=== PATIENT | female | born 1970 | race Caucasian/White ===

== ENCOUNTER 2023-10-18 09:13 | Outpatient (OUT) | payer OTHER, SELFPAY ==
[2023-10-18 09:29] LABS: Basophils Absolute Auto 0.1 10^3/uL (0.0-0.1); Basophils Percent Auto 1.8 % (0.2-2.0); Eosinophils Absolute Auto 0.2 10^3/uL (0.0-0.7); Eosinophils Percent Auto 4.1 % (0.9-7.0); Hematocrit 42.9 % (36.0-48.0); Immature Granulocytes Abs Auto 0.01 10^3/uL (0.00-0.03); Immature Granulocytes Pct Auto 0.2 % (0.0-0.5); Lymphocytes Absolute Auto 1.8 10^3/uL (1.2-3.8); Lymphocytes Percent Auto 35.8 % (20.5-60.0); Mean Corpuscular HGB Conc 32.6 g/dL (29.9-35.2); Mean Corpuscular Hemoglobin 29.4 pg (26.7-34.0); Mean Corpuscular Volume 89.9 fL (81.0-99.0); Mean Platelet Volume 9.3 fL (9.5-13.5); Monocytes Absolute Auto 0.4 10^3/uL (0.3-0.8); Monocytes Percent Auto 7.3 % (1.7-12.0); Neutrophils Absolute Auto 2.6 10^3/uL (1.4-6.5); Neutrophils Percent Auto 50.8 % (43.0-75.0); Platelet Count 283 10^3/uL (150-450); Red Blood Count 4.77 10^6/uL (4.20-5.40); Red Cell Distribution Width 12.4 % (11.0-15.0); White Blood Count 5.1 10^3/uL (4.0-11.0)
[2023-10-18 09:52] LABS: Alanine Aminotransferase 21 U/L (14-59); Albumin Globulin Ratio 1.1; Albumin Level 3.8 g/dL (3.4-5.0); Alkaline Phosphatase 93 U/L (46-116); Anion Gap 11.2; Aspartate Amino Transferase 12 U/L (15-37); Bilirubin Total 0.6 mg/dL (0.2-1.0); Calcium 8.9 mg/dL (8.5-10.1); Carbon Dioxide 31.8 mmol/L (21.0-32.0); Chloride 104 mmol/L (98-107); Chol HDL Ratio 3.3; Cholesterol 190 mg/dL (<=200); Estimated GFR (African America >60 (>=60); Estimated GFR (Non-African Ame >60 (>=60); Globulin 3.6 g/dL; Glucose 103 mg/dL (74-106); HDL Cholesterol 58 mg/dL (40-60); LDL Cholesterol Calculated 112.8 mg/dL; Sodium 143 mmol/L (136-145); Total Protein 7.4 g/dL (6.4-8.2); Triglycerides 96 mg/dL (<=150); VLDL CHOLESTEROL 19.2 mg/dL
== END 2023-10-18 09:14 | disposition home or self-care (01) ==
PROVIDERS: PCP Internal Medicine; Visit Provider Internal Medicine
DX: Z00.00 Encounter for general adult medical examination without abnormal findings (principal)
CPT/HCPCS: 36415; 80053; 80061; 85025

== ENCOUNTER 2023-10-29 09:36 | Emergency (ER) | payer OTHER, SELFPAY ==
[2023-10-29 09:40] VITALS: BP 153/79; PULSE 50; RESP 16; TEMP 36.4; O2SAT 100; BMI 25.8
[2023-10-29 09:46] VITALS: PULSE 50
--- NOTE | 2023-10-29 09:52 | XR_ITS ---
The [address] [address] Patient Name: RENETTA VALDES MRN: [id number] date: 1970 Sex: F Assigned Patient Location: ER Current Patient Location: ER Accession/Order Number: [id number] Exam Date: 10/29/2023 10:10 Report Date: 10/29/2023 10:28 At the request of: DEBBIE AVALOS Procedure: XR chest 1V EXAMINATION: XR chest 1V HISTORY: palpitations , tachycardia COMPARISON: No relevant comparison available. FINDINGS: LUNGS: No significant pulmonary parenchymal abnormalities. VASCULATURE: No increased pulmonary vasculature. PLEURA: No pneumothorax, effusion, or pleural thickening. CARDIAC: No cardiomegaly or cardiac silhouette abnormality. MEDIASTINUM: No visible mass or adenopathy. BONES: No fracture or visible bone lesion. OTHER: Negative. XR/XR chest 1V IMPRESSION: 1. No acute cardiopulmonary process. Electronically authenticated by: ELAINE WILKES Date: 10/29/2023 10:28
--- NOTE | 2023-10-29 09:52 | ECG_ITS ---
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
--- NOTE | 2023-10-29 10:03 | ED.ARRPALP1 ---
HPI - Arrhythmia/Palpitations General Chief Complaint: Arrhythmia/Palpitations Stated Complaint: FAST HEART RATE Time Seen by Provider: 10/29/23 09:48 Source: patient Mode of arrival: walk-in Limitations: no limitations History of Present Illness HPI narrative: 53-year-old female presents to the emergency department for palpitations. From time to time she feels like her heart is skipping a beat, it lasts momentarily. She's been having this intermittently for three days. She states she is always under stress, nothing out of the ordinary, and has been taking all of her medications. No new medications. no fever cough or shortness of breath. Related Data Home Medications Medication Instructions Recorded Confirmed metoprolol tartrate 25 mg tablet 25 mg PO 10/29/23 Allergies Allergy/AdvReac Type Severity Reaction Status Date / Time No Known Drug Allergies Allergy Verified 10/29/23 09:43 Review of Systems ROS Narrative A ten point review of systems is negative except as noted above. PFSH PFSH Social History Smoking status: Light tobacco smoker Exam Narrative Exam Narrative: Nurses note and vital signs reviewed and patient is not hypoxic. General: The patient appears well and in no apparent distress. Patient is resting comfortably on cart. Skin: Warm, dry, no pallor noted. There is no rash noted. Head: Normocephalic, atraumatic Eye: Normal conjunctiva, no drainage Ears, Nose, Mouth, and Throat: oral mucosa is moist. Nares patent. Cardiovascular: Regular Rate and Rhythm Respiratory: Patient is in no distress, no accessory muscle use, lungs are clear to auscultation, no wheezing, rales or rhonchi Back: non-tender GI: soft and nontender Musculoskeletal: The patient has no evidence of calf tenderness, no pitting edema, symmetrical pulses noted bilaterally Neurological: A&O, normal speech Psychiatric: Cooperative Constitutional Vital Signs, click to edit/add: Last Vital Signs Temp 97.6 F 10/29/23 09:40 Pulse 57 L 10/29/23 10:39 Resp 18 10/29/23 10:39 BP 134/81 10/29/23 10:39 Pulse Ox 97 10/29/23 10:39 O2 Del Method Room Air 10/29/23 09:40 Course Vital Signs Vital signs: Vital Signs Temperature 97.6 F 10/29/23 09:40 Pulse Rate 50 L 10/29/23 09:40 Respiratory Rate 16 10/29/23 09:40 Blood Pressure 153/79 H 10/29/23 09:40 Pulse Oximetry 100 10/29/23 09:40 Oxygen Delivery Method Room Air 10/29/23 09:40 Temperature 97.6 F 10/29/23 09:40 Pulse Rate 57 L 10/29/23 10:39 Respiratory Rate 18 10/29/23 10:39 Blood Pressure 134/81 10/29/23 10:39 Pulse Oximetry 97 10/29/23 10:39 Oxygen Delivery Method Room Air 10/29/23 09:40 MDM - Arrhythmia/Palpitations MDM Narrative Medical decision making narrative: her workup is negative. She's had no dysrhythmia here. Case discussed with her PCP and she is released home. findings were discussed with the patient. Differential Diagnosis Differential diagnosis: Likely palpitations, anxiety, artial fibrillation and ventricular premature beats Lab Data Attestation: I reviewed the patient's lab results. Labs: Lab Results 10/29/23 Range/Units 10:00 WBC 5.7 (4.0-11.0) 10^3/uL RBC 4.72 (4.20-5.40) 10^6/uL Hgb 14.0 (12.0-16.0) g/dL Hct 42.7 (36.0-48.0) % MCV 90.5 (81.0-99.0) fL MCH 29.7 (26.7-34.0) pg MCHC 32.8 (29.9-35.2) g/dL RDW 12.5 (11.0-15.0) % Plt Count 289 (150-450) 10^3/uL MPV 9.5 (9.5-13.5) fL Neut % (Auto) 57.4 (43.0-75.0) % Lymph % (Auto) 32.5 (20.5-60.0) % [place] % (Auto) 5.5 (1.7-12.0) % Eos % (Auto) 3.0 (0.9-7.0) % Baso % (Auto) 1.4 (0.2-2.0) % Neut # (Auto) 3.3 (1.4-6.5) 10^3/uL Lymph # (Auto) 1.8 (1.2-3.8) 10^3/uL [place] # (Auto) 0.3 (0.3-0.8) 10^3/uL Eos # (Auto) 0.2 (0.0-0.7) 10^3/uL Baso # (Auto) 0.1 (0.0-0.1) 10^3/uL Abs Immat Gran (auto) 0.01 (0.00-0.03) 10^3/uL Imm/Tot Granulo (auto) 0.2 (0.0-0.5) % Sodium 139 (136-145) mmol/L Potassium 3.9 (3.5-5.1) mmol/L Chloride 105 (98-107) mmol/L Carbon Dioxide 27.3 (21.0-32.0) mmol/L Anion Gap 10.6 BUN 17.0 (7.0-18.0) mg/dL Creatinine 0.77 (0.55-1.02) mg/dL Est GFR ( Amer) >60 (>=60) Est GFR (Non-Af Amer) >60 (>=60) BUN/Creatinine Ratio 22.1 Glucose 90 (74-106) mg/dL Calcium 9.2 (8.5-10.1) mg/dL Troponin I High Sens 6.3 (4.0-51.3) pg/mL ECG Data Attestation: I personally reviewed and interpreted this ECG as follows: (EKG on my interpretation shows normal sinus rhythm with a rate of 50.) Discharge Plan Discharge Chief Complaint: Arrhythmia/Palpitations Clinical Impression: Palpitations Patient Disposition: Home, Self-Care Time of Disposition Decision: 11:04 Condition: Good Mode of Transportation: Private Vehicle Prescriptions / Home Meds: No Action metoprolol tartrate 25 mg tablet 25 mg PO Instructions: Heart Palpitations (ED) Stand Alone Forms: Portal Instructions Referrals: Pb Elias DO [Primary Care Provider] - 1 week
[2023-10-29 10:08] LABS: Basophils Absolute Auto 0.1 10^3/uL (0.0-0.1); Basophils Percent Auto 1.4 % (0.2-2.0); Eosinophils Absolute Auto 0.2 10^3/uL (0.0-0.7); Hematocrit 42.7 % (36.0-48.0); Immature Granulocytes Abs Auto 0.01 10^3/uL (0.00-0.03); Immature Granulocytes Pct Auto 0.2 % (0.0-0.5); Lymphocytes Absolute Auto 1.8 10^3/uL (1.2-3.8); Lymphocytes Percent Auto 32.5 % (20.5-60.0); Mean Corpuscular HGB Conc 32.8 g/dL (29.9-35.2); Mean Corpuscular Hemoglobin 29.7 pg (26.7-34.0); Mean Corpuscular Volume 90.5 fL (81.0-99.0); Mean Platelet Volume 9.5 fL (9.5-13.5); Monocytes Absolute Auto 0.3 10^3/uL (0.3-0.8); Monocytes Percent Auto 5.5 % (1.7-12.0); Neutrophils Absolute Auto 3.3 10^3/uL (1.4-6.5); Neutrophils Percent Auto 57.4 % (43.0-75.0); Platelet Count 289 10^3/uL (150-450); Red Blood Count 4.72 10^6/uL (4.20-5.40); Red Cell Distribution Width 12.5 % (11.0-15.0); White Blood Count 5.7 10^3/uL (4.0-11.0)
[2023-10-29 10:26] LABS: Anion Gap 10.6; BUN Creatinine Ratio 22.1; Calcium 9.2 mg/dL (8.5-10.1); Carbon Dioxide 27.3 mmol/L (21.0-32.0); Chloride 105 mmol/L (98-107); Estimated GFR (African America >60 (>=60); Estimated GFR (Non-African Ame >60 (>=60); Glucose 90 mg/dL (74-106); Potassium 3.9 mmol/L (3.5-5.1); Sodium 139 mmol/L (136-145); Troponin I High Sensitivity 6.3 pg/mL (4.0-51.3)
[2023-10-29 10:39] VITALS: BP 134/81; PULSE 57; RESP 18; O2SAT 97
== END 2023-10-29 11:10 | disposition home or self-care (01) ==
PROVIDERS: Emergency Provider Emergency Medicine; PCP Internal Medicine
DX: R00.2 Palpitations (principal); F17.210 Nicotine dependence, cigarettes, uncomplicated
CPT/HCPCS: 36415; 71045; 80048; 84484; 85025; 93005; 99285

== ENCOUNTER 2025-04-30 08:07 | Outpatient (OUT) | payer OTHER, SELFPAY ==
--- OUTSIDE RECORDS SUMMARY | 2025-04-30 08:10 | XMS_ITS | CCD ---
Author Organization [facility] Care Team Providers Care Senior Advocate Name Role Phone DR MARCELLA CANDELARIO Attending Unavailable DR MARCELLA CANDELARIO Consulting Unavailable DR MARCELLA CANDELARIO Admitting Unavailable DR PB KIMBROUGH Primary Care Unavailable Pb Kimbrough Unavailable Medications Current Medications Medication Drug Class(es) Dates Sig (Normalized) Sig (Original) metoprolol tartrate 25 mg oral tablet (8 sources) beta-Adrenergic Avelino Start: 12-06-2024 End: 03-10-2025 take 1 tablet by mouth once daily Metoprolol Tartrate 25 mg tablet Active 0 .ROUTE .COMPLEX March 10, 2025 7:30am TAKE 1 TABLET BY MOUTH DAILY Start: 07-20-2024 End: 12-06-2024 take 1 tablet by mouth once daily Metoprolol Succinate 25 mg tablet extended release 24 hr Discontinued 25 MG PO Daily July 20, 2024 12:00am December 06, 2024 1:47pm Start: 02-11-2024 End: 03-10-2024 take 1 tablet by mouth once daily Metoprolol Tartrate 25 mg tablet Discontinued 25 MG PO Daily February 11, 2024 12:00am March 10, 2024 4:22pm take 1 tablet by luan th once daily Metoprolol Tartrate 25 MG TAKE 1 TABLET BY MOUTH DAILY Active Completed/Discontinued Medications Medication Drug Class(es) Dates Sig (Normalized) Sig (Original) cefuroxime 500 mg oral tablet (3 sources) Cephalosporin Antibacterial Start: 02-11-2024 End: 03-10-2024 take 1 tablet by mouth twice daily Cefuroxime Axetil 500 mg tablet Discontinued 500 MG PO Twice daily 10 February 11, 2024 12:00am March 10, 2024 3:56pm 24 hr dilTIAZem hydrochloride 120 mg extended release oral capsule (3 sources) Calcium Channel Avelino Start: 03-10-2024 End: 07-20-2024 take 1 capsule by mouth once daily in the morning, then take 1 capsule by mouth every twenty-four hours Diltiazem Hcl (Cardizem Cd) 120 mg capsule,extended release 24hr Discontinued 120 MG PO Every morning 30 March 10, 2024 12:00am July 20, 2024 8:22pm sulfamethoxazole 800 mg / trimethoprim 160 mg oral tablet (2 sources) Dihydrofolate Reductase Inhibitor Antibacterial, Sulfonamide Antimicrobial Start: 04-14-2024 End: 07-08-2024 take 1 tablet by mouth twice daily Sulfamethoxazole- Trimethoprim 800-160 mg tablet Discontinued 1 TAB PO Twice daily 09 04April 14, 2024 12:00am July 08, 2024 3:22pm Problems Problem Classification Problem Date Documented Date Episodic/Chronic Allergic reactions (1 source) Contact dermatitis; Translations: [Unspecified contact dermatitis, unspecified cause] 07-08-2024 Episodic Anxiety disorders (6 sources) Generalized anxiety disorder; Translations: [Generalized anxiety disorder] 02-11-2024 Chronic Cardiac dysrhythmias (7 sources) Palpitations; Translations: [Palpitations] 02-11-2024 Episodic Chronic obstructive pulmonary disease and bronchiectasis (10 sources) Chronic obstructive pulmonary disease with acute lower respiratory infection; Translations: [Chronic obstructive pulmonary disease with (acute) lower respiratory infection] 02-11-2024 Chronic Immunizations and screening for infectious disease (1 source) Encounter for screening for human papillomavirus (HPV); Translations: [ENC SCREENING HUMAN PAPILLOMAVIRUS] Onset: 10-18-2022 Episodic Nonmalignant breast conditions (5 sources) Breast lump; Translations: [Unspecified lump in the right breast, unspecified quadrant] 02-11-2024 Episodic Other screening for suspected conditions (not mental disorders or infectious disease) (8 sources) Encounter for screening for malignant neoplasm of cervix; Translations: [Patient encounter status] Onset: 10-15-2022 Episodic Other upper respiratory infections (1 source) Acute sinusitis, unspecified; Translations: [Acute sinusitis, unspecified] 02-11-2024 Episodic Residual codes; unclassified (2 sources) Menopause present; Translations: [Asymptomatic menopausal state] 03-10-2024 Episodic Substance-related disorders (7 sources) Tobacco user; Translations: [Nicotine dependence, cigarettes, uncomplicated] 02-11-2024 Chronic Results Test Name Value Interpretation Reference Range Facil ity Laboratory - Chemistry and C hemistry - challengeon 04-14-2024 Bilirubin Ql (U) Negative [facility] Glucose (U) [Mass/Vol] Negative [facility] Ketones Ql (U) Negative [facility] pH (U) 5.0 [pH] [facility] Specific gravity (U) [Rel density] 1.000 [facility] Urobilinogen (U) [Mass/Vol] 0.2 mg/dL [facility] Laboratory - Specimen inform ationon 04-14-2024 Appearance (U) Hazy [facility] Color (U) LightYellow [facility] Laboratory - Urinalysison Leukocyte esterase Test strip Ql (U) 1+ [facility] Nitrite Ql (U) Negative [facility] Protein Ql (U) Negative [facility] No Panel Informationon 04-14 Urine Occult Blood 1+ [facility] PAP ACOG PANEL 2: 30 to 65on 2022 . . Normal [facility] Comment on above: Result Comment: Perf ormed at: WB Performed By: #### [id number] #### [facility] [address] [address] [address] Aftab Renteria Age Gdln ACOG Testing 30-65 Normal [facility] Comment on above: Performed By: #### [id number] #### [facility] [address] [address] [address] Aftab Renteria DIAGNOSIS: Comment Normal [facility] Comment on above: Result Comment: NEGA TIVE FOR INTRAEPITHELIAL LESION OR MALIGNANCY. Performed at: WB Performed By: #### [id number] #### [facility] [address] [address] [address] Aftab Renteria HPV Aptima Negative Normal Negative [facility] Comment on above: Result Comment: This nucleic acid amplification test detects fourteen high-risk HPV types (16,18,31,33,35,39,45,51,52,56,58,59,66,68) without differentiation. Performed at: =G Performed By: #### [id number] #### [facility] [address] [address] [address] Aftab Renteria HPV Genotype Reflex Comment Normal [facility] Comment on above: Result Comment: Crit eria not met, HPV Genotype not performed. Performed at: WB Performed By: #### [id number] #### [facility] [address] [place] [address] Dr. Aftab Renteria Methodology: Comment Normal [facility] Comment on above: Result Comment: This liquid based ThinPrep(R) pap test was screened with the use of an image guided system. Performed at: WB Performed By: #### [id number] #### [facility] [address] [place] [address] Dr. Aftab Renteria Note: Comment Normal [facility] Comment on above: Result Comment: The Pap smear is a screening test designed to aid in the detection of premalignant and malignant conditions of the uterine cervix. It is not a diagnostic procedure and should not be used as the sole means of detecting cervical cancer. Both false-positive and false-negative reports do occur. . Performed at: WB Performed By: #### [id number] #### [facility] [address] [place] [address] Dr. Aftab Renteria Performed by: Comment Normal [facility] Comment on above: Result Comment: Peggy Kessler Attendant Child Activity (ASCP) Performed at: WB Performed By: #### [id number] #### [facility] [address] [place] [address] Dr. Aftab Renteria Specimen adequacy: Comment Normal [facility] Comment on above: Result Comment: Sati sfactory for evaluation. Endocervical and/or squamous metaplastic cells (endocervical component) are present. Performed at: WB Performed By: #### [id number] #### [facility] [address] [place] [address] Dr. Aftab Renteria Vital Signs Date Time Vital Sign Value Performing Clinician Dilshadi lity 04-26-2025 15:29-0400 Body height 170.18 cm [facility] 04-26-2025 15:29-0400 Body mass index (BMI) [Ratio] 24.7 kg/m2 [facility] 04-26-2025 15:29-0400 Body weight 71.72 kg [facility] 04-26-2025 15:29-0400 Diastolic blood pressure 88 mm[Hg] [facility] 04-26-2025 15:29-0400 Heart rate 64 /min [facility] 04-26-2025 15:29-0400 Respiratory rate 12 /min [facility] 04-26-2025 15:29-0400 Systolic blood pressure 138 mm[Hg] [facility] 07-08-2024 15:25-0400 Body height 170.18 cm [facility] 07-08-2024 15:25-0400 Body mass index (BMI) [Ratio] 24.5 kg/m2 [facility] 07-08-2024 15:25-0400 Body temperature 98.3 [degF] [facility] 07-08-2024 15:25-0400 Body weight 70.98 kg [facility] 07-08-2024 15:25-0400 Heart rate 61 /min [facility] 07-08-2024 15:25-0400 Respiratory rate 18 /min [facility] 07-08-2024 15:25-0400 SaO2% (BldA) [Mass fraction] 98 % [facility] 03-10-2024 15:56-0400 Body height 170.18 cm [facility] 03-10-2024 15:56-0400 Body mass index (BMI) [Ratio] 25 kg/m2 [facility] 03-10-2024 15:56-0400 Body weight 72.34 kg [facility] 03-10-2024 15:56-0400 Diastolic blood pressure 87 mm[Hg] [facility] 03-10-2024 15:56-0400 Heart rate 68 /min [facility] 03-10-2024 15:56-0400 Systolic blood pressure 128 mm[Hg] [facility] Encounters Encounter Date Encounter Type Care Provider Facility Start: 04-26-2025 End: 04-26-2025 ambulatory [facility] Work Phone: Start: 04-26-2025 End: 04-26-2025 Encounter for general adult medical examination without abnormal findings [facility] Start: 04-26-2025 End: 04-26-2025 Patient encounter procedure [facility] Work Phone: Start: 04-23-[address] [facility] Start: 07-08-2024 End: 07-08-2024 ambulatory [facility] Work Phone: Start: 07-08-2024 End: 07-08-2024 Patient encounter procedure [facility] Work Phone: Start: 04-14-2024 End: 04-14-2024 Patient encounter procedure [facility] Work Phone: Start: 03-10-2024 End: 03-10-2024 ambulatory [facility] Work Phone: Start: 03-10-2024 End: 03-10-2024 Patient encounter procedure [facility] Work Phone: Start: 02-11-2024 End: 02-11-2024 Patient encounter procedure [facility] Work Phone: Start: 10-29-2023 End: 10-29-2023 ambulatory Pb Kimbrough Other [employer] Other Start: 10-29-2023 Telephone encounter Pb Kimbrough [facility] Start: 10-20-2023 End: 10-20-2023 ambulatory Pb Kimbrough Other [employer] Other Start: 10-20-2023 Telephone encounter Pb Kimbrough FP [facility] Start: 10-15-2022 End: 10-15-[address] MARCELLA CANDELARIO Facility:H1 Plan of Treatment Date Care Activity Detail Author Comprehensive metabo lic 2000 panel - Serum or Plasma [facility] enter EKG 12 channel panel [facility] Holter monitor study [facility] MG Breast - bilateral Screening [facility] Immunizations Immunization Date Immunization Notes Care Provider Susannah perez 10-15-2022 diphtheria, tetanus toxoids and acellular pertussis vaccine, unspecified formulation Pb Kimbrough Other [facility] Payers Date Payer Category Payer Unknown [id number] 1959 Unknown [id number] Unknown [id number] Unknown [employer] [id number] Social History Date Type Detail Facility Sex Assigned At [employer] Other Start: 1970 Sex Assigned At Female F [facility] Start: 07-08-2024 Tobacco smoking stat [facility] Never smoked tobacco (finding) [facility] Start: 04-26-2025 Sex Female (finding) [facility] Evaluation note Note Date & Type Note Facility Evaluation note No Information [facility] Other Evaluation note Note Date & Type Note Facility Evaluation note Diagnosis Onset Date Cigarette nicotine dependenc e without complication acute Acute sinusitis noneactive Palpitations acute [facility] Work Phone: Evaluation note Note Date & Type Note Facility Evaluation note No assessment information availa ble [facility] Work Phone: Evaluation note Note Date & Type Note Facility Evaluation note Diagnosis Onset Date Resolution Cigarette nicotine dependence without complication acute April 26, 2025 3 :20pm OPAL (generalized anxiety disorder) acute April 26, 2025 3:20pm Palpitations acute April 26 3:20pm Screening for colon cancer acute April 26, 2025 3 :20pm Screening mammogram for breast cancer acute April 26, 2025 3 :20pm Wellness examination acute April 26, 2025 3:20pm [facility] Work Phone: History general Narrative - Reported Note Date & Type Note Facility History general Narrative - Reported Type Medical History Palpitations Medical History Breast mass, right Medical History Cigarette nicotine d ependence without complication Medical History Chronic obstructive pulmonary disease with (acute) lower respiratory infection Medical History COPD exacerbation Medical History OPAL (generalized anx iety disorder) Surgical History tubal ligation 01/13/2015 Surgical History endometrial ablation 01/13/2015 Hospitalization History see surgical history [employer] Other Summary Purpose Family History Relationship Condition Age at Onset Recorded Date/T abhijit father Hypertension Unknown History of stroke Unknown Family history of other condition Unknown Advance Directives Advance Directive Response Recorded Date/ Time Advance Directives No February 10 12:02pm Chief Complaint and Reason for Visit Chief Complaint Sinuses-Testing for [id number] Dizziness, Heart Racing Reason for Visit Cigarette nicotine d ependence without complication Acute sinusitis Palpitations Chief Complaint uti - burning freque ncy Rash, Exposed to poison marc Chief Complaint Admit Date Wellness April 26, 2025 3:20p m Reason for Visit Admit Date Cigarette nicotine dependence without co mplication April 26, 2025 3:20pm OPAL (generalized anxiety disorder) April 012024 3:20pm Palpitations April 26, 2025 3:20p m Screening for colon cancer April 26 3:20pm Screening mammogram for breast cancer Ma y 2024 3:20pm Wellness examination April 26, 2025 3:20 pm Additional Source Comments INFORMATION SOURCE (unrecogn ized section and content) DATE CREATED AUTHOR 2022 The [facility]hawn [facility] REASON FOR VISIT (unrecogniz ed section and content) Lab resultsHeart Issues/Dizz iness Care Teams (unrecognized sec tion and content) Team Status: Active Member Role Status Dates Pb Kimbrough DO Primary Care Provider Active Team Status: Inactive Member Role Status Dates Pb Kimbrough DO Primary Care Provide r, Attending Provider Active Start: February 11, 2024 End: February 11, 2024 Team Status: Inactive Member Role Status Dates Pb Kimbrough DO Primary Care Provide r, Attending Provider Active Start: March 10, 2024 End: March 10, 2024 Team Status: Inactive Member Role Status Dates Pb Kimbrough DO Primary Care Provide r, Attending Provider Active Start: April 14, 2024 End: April 14, 2024 Team Status: Inactive Member Role Status Dates Pb Kimbrough DO Primary Care Provider Active Start: July 08, 2024 End: July 08, 2024 Krystin Montes APRN Attending Provider Active Start: July 08, 2024 End: July 08, 2024 Team Status: Inactive Member Role Status Dates Pb Kimbrough DO Primary Care Provide r, Attending Provider Active Start: April 26, 2025 End: April 26, 2025 Goals (unrecognized section and content) Goals may be documented in a n alternate section FOR RECORDS PERTAINING TO PATIENTS WHO ARE OR HAVE BEEN ENROLLED IN A CHEMICAL DEPENDENCY/SUBSTANCEABUSE PROGRAM, SOME INFORMATION MAY BE OMITTED. This clinical summary was aggregated from multiple sources. Caution should be exercised in using it in the provision of clinical care. This summary normalizes information from multiple sources, and as a consequence, information in this document may materially change the coding, format and clinical context of patient data. In addition, data may be omitted in some cases. CLINICAL DECISIONS SHOULD BE BASED ON THE PRIMARY CLINICAL RECORDS. [employer] provides no warranty or guarantee of the accuracy or completeness of information in this document.
[2025-04-30 08:31] LABS: Basophils Absolute Auto 0.1 10^3/uL (0.0-0.1); Basophils Percent Auto 1.6 % (0.2-2.0); Eosinophils Absolute Auto 0.2 10^3/uL (0.0-0.7); Eosinophils Percent Auto 3.2 % (0.9-7.0); Hematocrit 42.9 % (36.0-48.0); Hemoglobin 14.3 g/dL (12.0-16.0); Immature Granulocytes Abs Auto 0.01 10^3/uL (0.00-0.03); Immature Granulocytes Pct Auto 0.2 % (0.0-0.5); Lymphocytes Absolute Auto 1.6 10^3/uL (1.2-3.8); Mean Corpuscular HGB Conc 33.3 g/dL (29.9-35.2); Mean Corpuscular Volume 89.9 fL (81.0-99.0); Mean Platelet Volume 9.3 fL (9.5-13.5); Monocytes Absolute Auto 0.4 10^3/uL (0.3-0.8); Monocytes Percent Auto 7.3 % (1.7-12.0); Neutrophils Absolute Auto 3.3 10^3/uL (1.4-6.5); Neutrophils Percent Auto 58.7 % (43.0-75.0); Platelet Count 278 10^3/uL (150-450); Red Blood Count 4.77 10^6/uL (4.20-5.40); Red Cell Distribution Width 12.6 % (11.0-15.0); White Blood Count 5.6 10^3/uL (4.0-11.0)
[2025-04-30 08:50] LABS: Alanine Aminotransferase 24 U/L (14-59); Albumin Level 3.7 g/dL (3.4-5.0); Alkaline Phosphatase 93 U/L (46-116); Anion Gap 11.1; Aspartate Amino Transferase 14 U/L (15-37); Bilirubin Total 0.6 mg/dL (0.2-1.0); Carbon Dioxide 32.4 mmol/L (21.0-32.0); Chloride 104 mmol/L (98-107); Chol HDL Ratio 3.2; Cholesterol 203 mg/dL (<=200); Estimated GFR (African America >60 (>=60 mL/min/1.73m^2); Estimated GFR (Non-African Ame >60 (>=60 mL/min/1.73m^2); Globulin 3.6 g/dL; Glucose 102 mg/dL (74-106); HDL Cholesterol 64 mg/dL (40-60); Potassium 3.5 mmol/L (3.5-5.1); Sodium 144 mmol/L (136-145); Total Protein 7.3 g/dL (6.4-8.2); Triglycerides 70 mg/dL (<=150)
== END 2025-04-30 08:08 | disposition home or self-care (01) ==
LOC: LAB 08:08
PROVIDERS: PCP Internal Medicine; Visit Provider Internal Medicine
DX: Z00.00 Encounter for general adult medical examination without abnormal findings (principal)
CPT/HCPCS: 36415; 80053; 80061; 85025

== ENCOUNTER 2025-05-01 23:43 | Emergency (ER) | payer OTHER, SELFPAY ==
[2025-05-01 23:49] VITALS: BP 167/76; PULSE 71; TEMP 37.1; O2SAT 100; BMI 26.2
[2025-05-01 23:58] VITALS: PULSE 61
--- NOTE | 2025-05-01 23:58 | ECG_ITS ---
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 Measurements Intervals [place] Rate: 61 P: 60 IA: 214 QRS: 42 QRSD: 76 T: 59 QT: 392 QTc: 396 Interpretive Statements 1100 Sinus rhythm 2231 First degree AV block 8102 Low QRS voltage in chest leads 9150 abnormal ECG Compared to ECG 10/29/2023 09:46:31 Myocardial infarct finding no longer present Electronically Signed On 05-02-2025 7:09:17 EDT by LUCIO HEATON M.D.
[2025-05-02] VITALS (20 sets, daily range): BP systolic 105–147; BP diastolic 76–89; PULSE 52–67; O2SAT 96–100
--- OUTSIDE RECORDS SUMMARY | 2025-05-02 | XMS_ITS | CCD ---
Author Organization [facility] Care Team Providers Care Teacher Assistant Name Role Phone DR MARCELLA CANDELARIO Attending [...] - challengeon 04-14-2024 Bilirubin Ql (U) Negative [facility] Glucose (U) [Mass/Vol] Negative [facility] Ketones Ql (U) Negative [facility] pH (U) 5.0 [pH] [facility] Specific gravity (U) [Rel density] 1.000 [facility] Urobilinogen (U) [Mass/Vol] 0.2 mg/dL [facility] Laboratory - Specimen inform ationon 04-14-2024 Appearance (U) Hazy [facility] Color (U) LightYellow [facility] Laboratory - Urinalysison Leukocyte esterase Test strip Ql (U) 1+ [facility] Nitrite Ql (U) Negative [facility] Protein Ql (U) Negative [facility] No Panel Informationon 04-14 Urine Occult Blood 1+ [facility] PAP ACOG PANEL 2: 30 to 65on 2022 . . Normal [facility] Comment on above: Result Comment: Perf ormed at: WB Performed By: #### [id number] #### [facility] [address] [address] [address] Aftab Renteria Age Gdln ACOG Testing 30-65 Normal [facility] Comment on above: Performed By: #### [id number] #### [facility] [address] [address] [address] Aftab Renteria DIAGNOSIS: Comment Normal [facility] Comment on above: Result Comment: NEGA TIVE FOR INTRAEPITHELIAL LESION OR MALIGNANCY. Performed at: WB Performed By: #### [id number] #### [facility] [address] [address] [address] Aftab Renteria HPV Aptima Negative Normal Negative [facility] Comment on above: Result Comment: This nucleic acid amplification test detects fourteen high-risk HPV types (16,18,31,33,35,39,45,51,52,56,58,59,66,68) without differentiation. Performed at: =G Performed By: #### [id number] #### [facility] [address] [address] [address] Aftab Renteria HPV Genotype Reflex Comment Normal [facility] Comment on above: Result Comment: Crit eria not met, HPV Genotype not performed. Performed at: WB Performed By: #### [id number] #### [facility] [address] [place] [address] Dr. Aftab Renteria Methodology: Comment Normal [facility] Comment on above: Result Comment: This liquid based ThinPrep(R) pap test was screened with the use of an image guided system. Performed at: WB Performed By: #### [id number] #### [facility] [address] [place] [address] Dr. Aftab Renteria Note: Comment Normal [facility] Comment on above: Result Comment: The Pap smear is a screening test designed to aid in the detection of premalignant and malignant conditions of the uterine cervix. It is not a diagnostic procedure and should not be used as the sole means of detecting cervical cancer. Both false-positive and false-negative reports do occur. . Performed at: WB Performed By: #### [id number] #### [facility] [address] [place] [address] Dr. Aftab Renteria Performed by: Comment Normal [facility] Comment on above: Result Comment: Peggy Kessler Backfiller (ASCP) Performed at: WB Performed By: #### [id number] #### [facility] [address] [place] [address] Dr. Aftab Renteria Specimen adequacy: Comment Normal [facility] Comment on above: Result Comment: Sati sfactory for evaluation. Endocervical and/or squamous metaplastic cells (endocervical component) are present. Performed at: WB Performed By: #### [id number] #### [facility] [address] [place] [address] Dr. Aftab Rneteria Vital Signs Date Time Vital Sign Value Performing Clinician Dilshadi lity 04-26-2025 15:29-0400 Body height 170.18 cm [facility] 04-26-2025 15:29-0400 Body mass index (BMI) [Ratio] 24.7 kg/m2 [facility] 04-26-2025 15:29-0400 Body weight 71.72 kg [facility] 04-26-2025 15:29-0400 Diastolic blood pressure 88 mm[Hg] [facility] 04-26-2025 15:29-0400 Heart rate 64 /min [facility] 04-26-2025 15:29-0400 Respiratory rate 12 /min [facility] 04-26-2025 15:29-0400 Systolic blood pressure 138 mm[Hg] [facility] 07-08-2024 15:25-0400 Body height 170.18 cm [facility] 07-08-2024 15:25-0400 Body mass index (BMI) [Ratio] 24.5 kg/m2 [facility] 07-08-2024 15:25-0400 Body temperature 98.3 [degF] [facility] 07-08-2024 15:25-0400 Body weight 70.98 kg [facility] 07-08-2024 15:25-0400 Heart rate 61 /min [facility] 07-08-2024 15:25-0400 Respiratory rate 18 /min [facility] 07-08-2024 15:25-0400 SaO2% (BldA) [Mass fraction] 98 % [facility] 03-10-2024 15:56-0400 Body height 170.18 cm [facility] 03-10-2024 15:56-0400 Body mass index (BMI) [Ratio] 25 kg/m2 [facility] 03-10-2024 15:56-0400 Body weight 72.34 kg [facility] 03-10-2024 15:56-0400 Diastolic blood pressure 87 mm[Hg] [facility] 03-10-2024 15:56-0400 Heart rate 68 /min [facility] 03-10-2024 15:56-0400 Systolic blood pressure 128 mm[Hg] [facility] Encounters Encounter Date Encounter Type Care Provider Facility Start: 04-26-2025 End: 04-26-2025 ambulatory [facility] Work Phone: Start: 04-26-2025 End: 04-26-2025 Encounter for general adult medical examination without abnormal findings [facility] Start: 04-26-2025 End: 04-26-2025 Patient encounter procedure [facility] Work Phone: Start: 04-23-2025 Patient encounter status [facility] Start: 07-08-2024 End: 07-08-2024 ambulatory [facility] Work Phone: Start: 07-08-2024 End: 07-08-2024 Patient encounter procedure [facility] Work Phone: Start: 04-14-2024 End: 04-14-2024 Patient encounter procedure [facility] Work Phone: Start: 03-10-2024 End: 03-10-2024 ambulatory [facility] Work Phone: Start: 03-10-2024 End: 03-10-2024 Patient encounter procedure [facility] Work Phone: Start: 02-11-2024 End: 02-11-2024 Patient encounter procedure [facility] Work Phone: Start: 10-29-2023 End: 10-29-2023 ambulatory Pb Kimbrough Other [employer] Other Start: 10-29-2023 Telephone encounter Pb Kimbrough [facility] [place] [facility] Start: 10-20-2023 End: 10-20-2023 ambulatory Pb Kimbrough Other [facility] Other Start: 10-20-2023 Telephone encounter Pb Kimbrough [facility] [place] [facility] Start: 10-15-2022 End: 10-15-[address] MARCELLA CANDELARIO Facility:H1 Plan of Treatment Date Care Activity Detail Author Comprehensive metabo lic 2000 panel - Serum or Plasma [facility] enter EKG 12 channel panel [facility] Holter monitor study [facility] MG Breast - bilateral Screening [facility] Immunizations Immunization Date Immunization Notes Care Provider Susannah perez 10-15-2022 diphtheria, tetanus toxoids and acellular pertussis vaccine, unspecified formulation Pb Kimbrough Other [facility] Payers Date Payer Category Payer Unknown [id number] 1959 Unknown [id number] Unknown [id number] Unknown [employer] [id number] Social History Date Type Detail Facility Sex Assigned At [facility] Other Start: 1970 Sex Assigned At Female [facility] Start: 07-08-2024 Tobacco smoking stat [facility] Never smoked tobacco (finding) [facility] Start: 04-26-2025 Sex Female (finding) [facility] Evaluation note Note Date & Type Note Facility Evaluation note No Information [facility] Other Evaluation note Note Date & Type Note Facility Evaluation note Diagnosis Onset Date Cigarette nicotine dependenc e without complication acute Acute sinusitis noneactive Palpitations acute [facility] Work Phone: Evaluation note Note Date & Type Note Facility Evaluation note No assessment information availa ble [facility] Work Phone: Evaluation note Note Date & [...] Wellness examination acute April 26, 2025 3:20pm [facility] Work Phone: History general Narrative - Reported [...] ablation 01/13/2015 Hospitalization History see surgical history [facility] Other Summary Purpose Family History Relationship Condition Age at Onset Recorded Date/T abhijit father Hypertension Unknown History of stroke Unknown Family history of other condition Unknown Advance Directives Advance Directive Response Recorded Date/ Time Advance Directives No February 10 12:02pm Chief Complaint and Reason for Visit Chief Complaint Sinuses-Testing for [phone] Dizziness, Heart Racing Reason for Visit Cigarette [...] BE BASED ON THE PRIMARY CLINICAL RECORDS. [employer] provides no warranty or guarantee of the accuracy or completeness of information in this document.
--- NOTE | 2025-05-02 00:11 | ED.BACK1 ---
HPI HPI - Back Pain/Injury General Chief Complaint: Back Pain/Injury Stated Complaint: BILATERAL SHOULDER BLADE PAIN Time Seen by Provider: 05/02/25 00:00 Source: patient Mode of arrival: walk-in Limitations: no limitations History of Present Illness HPI Narrative: back pain at shoulder blades bilat. for for past week. Has been lifting her chunky grandson. States tonight the pain woke her up. No dyspnea or nausea. no fever Related Data Home Medications ?Medication ?Instructions ?Recorded ?Confirmed metoprolol tartrate 25 mg tablet 25 mg PO 10/29/23 Allergies Allergy/AdvReac Type Severity Reaction Status Date / Time No Known Drug Allergies Allergy Verified 05/01/25 23:54 Opioid HPI Opioid Management Most Recent Opioid Data: Last Pain Scale 2 05/01/25, 23:49 Review of Systems ROS Status of ROS 10 or more systems reviewed and unremarkable except as noted in history and below [facility] Social History Smoking status: Light tobacco smoker Little interest or pleasure in doing things: not at all Feeling down, depressed, or hopeless: not at all Exam Constitutional Vital Signs, click to edit/add: Last Vital Signs Temp 98.7 F 05/01/25 23:49 Pulse 71 05/01/25 23:49 Resp 16 05/02/25 00:29 BP 167/76 H 05/01/25 23:49 Pulse Ox 100 05/01/25 23:49 Common normals: no apparent distress, average body habitus, oriented x3, no limitations, healthy appearing, alert and well nourished [facility] Common normals: normocephalic and head/scalp atraumatic Eye Common normals: PERRL and EOMs intact bilaterally Chest Other: mild tenderness of her back reproducing symptoms Respiratory Common normals: normal respiratory effort, no retractions, no use of accessory muscles and clear to auscultation bilaterally Cardio Common normals: regular rate, regular rhythm, S1 normal heart sound and S2 normal heart sound Extremity Common normals: normal to inspection and full ROM Neuro Common normals: oriented x3, CN's II-XII intact bilaterally, moves all extremities and no focal motor deficits Psych Appearance: grossly normal Course Vital Signs Vital signs: Vital Signs Temperature 98.7 F 05/01/25 23:49 Pulse Rate 71 05/01/25 23:49 Respiratory Rate 20 05/01/25 23:49 Blood Pressure 167/76 H 05/01/25 23:49 Pulse Oximetry 100 05/01/25 23:49 Temperature 98.7 F 05/01/25 23:49 Pulse Rate 71 05/01/25 23:49 Respiratory Rate 16 05/02/25 00:29 Blood Pressure 167/76 H 05/01/25 23:49 Pulse Oximetry 100 05/01/25 23:49 MDM - Back Pain/Injury MDM Narrative Medical decision making narrative: patient presents with mid back pain for past week. Troponin and d-dimer neg. cxray clear. Patient informed of diagnosis of musculoskeletal pain and discharged home to follow up with her doctor Lab Data Labs: Lab Results 05/02/25 Range/Units 00:20 WBC 5.2 (4.0-11.0) 10^3/uL RBC 4.57 (4.20-5.40) 10^6/uL Hgb 13.7 (12.0-16.0) g/dL Hct 41.1 (36.0-48.0) % MCV 89.9 (81.0-99.0) fL MCH 30.0 (26.7-34.0) pg MCHC 33.3 (29.9-35.2) g/dL RDW 12.7 (11.0-15.0) % Plt Count 254 (150-450) 10^3/uL MPV 9.4 L (9.5-13.5) fL Neut % (Auto) 40.3 L (43.0-75.0) % Lymph % (Auto) 40.0 (20.5-60.0) % Terry % (Auto) 11.2 (1.7-12.0) % Eos % (Auto) 7.1 H (0.9-7.0) % Baso % (Auto) 1.2 (0.2-2.0) % Neut # (Auto) 2.1 (1.4-6.5) 10^3/uL Lymph # (Auto) 2.1 (1.2-3.8) 10^3/uL Terry # (Auto) 0.6 (0.3-0.8) 10^3/uL Eos # (Auto) 0.4 (0.0-0.7) 10^3/uL Baso # (Auto) 0.1 (0.0-0.1) 10^3/uL Abs Immat Gran (auto) 0.01 (0.00-0.03) 10^3/uL Imm/Tot Granulo (auto) 0.2 (0.0-0.5) % D-Dimer 0.22 (<=0.59) mg/L FEU Sodium 143 (136-145) mmol/L Potassium 3.6 (3.5-5.1) mmol/L Chloride 107 (98-107) mmol/L Carbon Dioxide 28.8 (21.0-32.0) mmol/L Anion Gap 10.8 BUN 16.0 (7.0-18.0) mg/dL Creatinine 0.66 (0.55-1.02) mg/dL Est GFR ( Amer) >60 (>=60 mL/min/1.73m^2) Est GFR (Non-Af Amer) >60 (>=60 mL/min/1.73m^2) BUN/Creatinine Ratio 24.2 Glucose 111 H (74-106) mg/dL Calcium 9.4 (8.5-10.1) mg/dL Troponin I High Sens 7.8 (4.0-51.3) pg/mL Discharge Plan Discharge Chief Complaint: Back Pain/Injury Clinical Impression: Thoracic back pain Patient Disposition: Home, Self-Care Prescriptions / Home Meds: No Action metoprolol tartrate 25 mg tablet 25 mg PO Print Language: German Instructions: Thoracic Pain (ED) Referrals: Pb Elias DO [Primary Care Provider, Internal Medicine] - 1 week
[2025-05-02 00:26] LABS: Basophils Absolute Auto 0.1 10^3/uL (0.0-0.1); Basophils Percent Auto 1.2 % (0.2-2.0); Eosinophils Absolute Auto 0.4 10^3/uL (0.0-0.7); Eosinophils Percent Auto 7.1 % (0.9-7.0); Hematocrit 41.1 % (36.0-48.0); Hemoglobin 13.7 g/dL (12.0-16.0); Immature Granulocytes Abs Auto 0.01 10^3/uL (0.00-0.03); Immature Granulocytes Pct Auto 0.2 % (0.0-0.5); Lymphocytes Absolute Auto 2.1 10^3/uL (1.2-3.8); Mean Corpuscular HGB Conc 33.3 g/dL (29.9-35.2); Mean Corpuscular Volume 89.9 fL (81.0-99.0); Mean Platelet Volume 9.4 fL (9.5-13.5); Monocytes Absolute Auto 0.6 10^3/uL (0.3-0.8); Monocytes Percent Auto 11.2 % (1.7-12.0); Neutrophils Absolute Auto 2.1 10^3/uL (1.4-6.5); Neutrophils Percent Auto 40.3 % (43.0-75.0); Platelet Count 254 10^3/uL (150-450); Red Blood Count 4.57 10^6/uL (4.20-5.40); Red Cell Distribution Width 12.7 % (11.0-15.0); White Blood Count 5.2 10^3/uL (4.0-11.0)
[2025-05-02 00:41] LABS: D Dimer 0.22 mg/L FEU (<=0.59)
[2025-05-02 00:45] LABS: Anion Gap 10.8; BUN Creatinine Ratio 24.2; Calcium 9.4 mg/dL (8.5-10.1); Carbon Dioxide 28.8 mmol/L (21.0-32.0); Chloride 107 mmol/L (98-107); Estimated GFR (African America >60 (>=60 mL/min/1.73m^2); Estimated GFR (Non-African Ame >60 (>=60 mL/min/1.73m^2); Glucose 111 mg/dL (74-106); Potassium 3.6 mmol/L (3.5-5.1); Sodium 143 mmol/L (136-145); Troponin I High Sensitivity 7.8 pg/mL (4.0-51.3)
[2025-05-02] MEDS: IBUPROFEN 600 MG TABLET PO (01:35)
== END 2025-05-02 03:08 | disposition home or self-care (01) ==
PROVIDERS: Emergency Provider Internal Medicine; PCP Internal Medicine
DX: M54.6 Pain in thoracic spine (principal); F17.200 Nicotine dependence, unspecified, uncomplicated
CPT/HCPCS: 36415; 71045; 80048; 84484; 85025; 85378; 93005; 99285

== ENCOUNTER 2025-05-03 15:20 | Outpatient (OUT) | payer OTHER, SELFPAY ==
--- OUTSIDE RECORDS SUMMARY | 2025-05-03 15:22 | XMS_ITS | Clinical Summary ---
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 Name Role Phone Pb Elias DO Primary Care Provider [phone] Social History Tobacco Use Types Packs/Day Years Used Date Smoking Tobacco: Never Assessed Comments Unknown Sex and Gender Information Value Date Recorded Sex Assigned at Not on file Legal Sex Female 10:53 AM EST Gender Identity Not on file Sexual Orientation Not on file Plan of Treatment Health Maintenance Due Date Last Done Comments Depression Screening 1982 Tobacco Screening 1982 Adult BMI Screening 1988 DTaP,Tdap and Td Vaccines (1 - Tdap) 1989 Pap Smear 1991 Zoster (Shingles) Vaccine (1 of 2) 2020 Influenza Vaccine 08/01/2025 Medical Devices Not on file Insurance [employer] [address] Care Teams Liquor Grinding Mill Operator Relationship Specialty Start Date End Date Pb Elias DO [address] [place] [address] PCP - General Internal Medicine 10/16/22
--- NOTE | 2025-05-03 15:43 | MM_ITS ---
Patient Name: RENETTA VALDES MR#: [id number] : 1970 Exam Date: 05/03/2025 Ordering Doctor: DR ALEXIA KIMBROUGH D.O. RADIOLOGY REPORT PROCEDURE: MM TOMOSYNTHESIS SCREENING BI COMPARISON: MG MAMM SCREEN ARNULFO W CAD, 01/18/2020. MG MAMM SCREEN ARNULFO W CAD, 12/08/2018. MG MAMM AR[place]UL[place] SCRN W CAD DIG, 02/09/2015. MG MAMM ARNULFO DIAG W CAD DIG, 10/20/2013. INDICATIONS: Screening Calculator Name NCI Breast Cancer Risk Assessment Tool 5 Year Breast Cancer Risk 1.10% Lifetime Breast Cancer Risk 8.20% Personal Breast Cancer No Personal Ovarian Cancer No Treatments None Family Cancers Aunt-paternal with breast cancer at age ~40. LOCATION: [facility] BREAST COMPOSITION: The breasts are heterogeneously dense,which may obscure small masses. FINDINGS: RIGHT BREAST: No significant suspicious finding. Benign-appearing calcifications are present. There is a slightly smaller focal asymmetry. LEFT BREAST: No significant suspicious finding. Benign-appearing calcifications are present. There is a slightly smaller focal asymmetry. DIAGNOSTIC CATEGORY 2--BENIGN FINDING: RECOMMENDATIONS: ROUTINE MAMMOGRAM AND CLINICAL EVALUATION IN 12 MONTHS. PLEASE NOTE: A NORMAL MAMMOGRAM DOES NOT EXCLUDE THE POSSIBILITY OF BREAST CANCER. A CLINICALLY SUSPICIOUS PALPABLE LUMP SHOULD BE BIOPSIED. Dictated by: Carlos Stroud MD on 05/03/2025 at 16:22 Approved by: Carlos Stroud MD on 05/03/2025 at 16:36
== END 2025-05-03 15:21 | disposition home or self-care (01) ==
LOC: MAMMO 15:20
PROVIDERS: PCP Internal Medicine; Visit Provider Internal Medicine
DX: Z12.31 Encounter for screening mammogram for malignant neoplasm of breast (principal); R00.2 Palpitations; Z80.3 Family history of malignant neoplasm of breast
CPT/HCPCS: 77063; 77067